=== PATIENT | male | born 1970 | race Caucasian/White ===

== ENCOUNTER 2024-08-13 17:24 | Emergency (ER) | payer OTHER, SELFPAY ==
[2024-08-13 17:33] VITALS: BP 183/119
[2024-08-13 18:23] VITALS: BP 182/118; BMI 29.9
[2024-08-13 18:53] LABS: % Basophils 0.6 % (0-2); % Eosinophils 2.9 % (0-6); % Immature Granulocytes 0.3 % (0-0.5); % Lymphocytes 23.9 % (20.5-51.1); % Monocytes 8.8 % (1.7-9.3); % Neutrophils 63.5 % (42.2-75.2); Absolute Eosinophils 0.2 10^3/uL (0-0.7); Absolute Lymphocytes 1.7 10^3/uL (1.2-3.4); Absolute Monocytes 0.6 10^3/uL (0.1-0.6); Absolute Neutrophils 4.6 10^3/uL (1.4-6.5); Hematocrit 41.3 % (39.0-52.0); Hemoglobin 14.3 g/dL (13.0-18.0); Mean Corp Hgb Conc. 34.6 g/dL (33.0-37.0); Mean Corpuscular Hgb 31.6 pg (27.0-31.0); Mean Corpuscular Volume 91.2 fL (80.0-94.0); Mean Platelet Volume 10.1 fL (7.4-10.4); Nucleated Red Blood Cells % 0 % (-); Platelet Count 225 10^3/uL (130-400); Red Blood Cell Count 4.53 10^6/uL (4.70-6.10); Red Cell Dist. Width 13.1 % (11.5-14.5); White Blood Cell Count 7.2 10^3/uL (4.8-10.8)
--- NOTE | 2024-08-13 18:55 | ED.GENMED ---
History of Present Illness
General
Chief Complaint: Blood Pressure Problem
Source: patient
Exam Limitations: none
Time Seen by Provider: 08/13/24 18:34
Nursing documentation reviewed up to this point in time: agreed with
History of Present Illness
History of Present Illness:
54-year-old male history of hypertension previously on meds now on diet lifestyle changes presents for evaluation of elevated blood pressure for a few days he felt a bit off mild headache pressures years, blood pressure taken yesterday when he is at
the hospital with his mother was elevated 180/118, today it was elevated again states he had some mild pain in his left chest earlier today into his arm no nausea no vomiting, states he was on the medication previously that made him cough a lot he
thinks it was lisinopril, he does drink alcohol socially, does admit to some stress in his life related to an ex-, he is employed, he has a PCP Kenny Levy, he did start a supplement [id number] few weeks ago which she thinks corresponds
with elevated blood pressures
Past History
Past History
ED Past Medical History: HTN
ED Past Surgical History: None
Social History
Tobacco: Former smoker
Alcohol: Daily ( Beer 2-6)
Drug: None
Personal:
Living: alone
Employment: Employed
Family History
Family History: Negative Hypertension, Early CAD, CAD or Sudden
Phy Exam
Physical Exam
Physical Exam:
Physical Exam
General: no apparent distress, not acutely ill
Neck: supple.
Heart: s1/s2 regular rate and rhythm, no murmur. equal radial pulses.
Lungs: no acute respiratory distress. clear bilaterally
Abdomen: not tender.
Neuro: alert and oriented. no focal neurological deficits
Skin: no rash
Psychiatric: well kept. interactive and cooperative
Extremities: no edema.
Course
Orders/Labs/Results
Orders:
Orders
08/13/24 17:39
EKG [Electrocardiogram (*1)] Urgent
Reason for Study: Hypertension, Benign
EKG- Treatment ONCE
08/13/24 18:35
Electrocardiogram (*1) Stat
Reason for Study: Other
Other Reason for Exam: chest pain
EKG- Treatment ONCE
08/13/24 18:45
Complete Blood Count/With Diff Urgent
Comprehensive Metabolic Panel Urgent
Magnesium Urgent
08/13/24 18:50
HydrALAZINE [Apresoline] 10 mg IV NOW STA
08/13/24 19:37
Troponin I Urgent
08/13/24 20:46
Acetaminophen [Tylenol] 1,000 mg PO NOW STA
Amlodipine [Norvasc] 10 mg PO NOW STA
Abnormal Lab Results
08/13/24
18:45
RBC 4.53 L 10^6/uL
(4.70-6.10)
MCH 31.6 H pg
(27.0-31.0)
08/13/24 18:45
08/13/24 18:45
Vital Signs
Initial and Last Documented VS:
Initial Vital Signs
Temp Pulse Resp BP Pulse Ox
98.3 F 77 18 183/119 97
08/13/24 17:33 08/13/24 17:33 08/13/24 17:33 08/13/24 17:33 08/13/24 17:33
Last Documented Vital Signs
Temp Pulse Resp BP Pulse Ox
98.3 F 73 18 170/96 98
08/13/24 17:33 08/13/24 20:58 08/13/24 20:45 08/13/24 20:58 08/13/24 19:45
MDM/Problems Addressed
Differential Diagnosis Includes:
Accelerated hypertension hypertension hypertensive urgency hypertensive emergency, question side effect of supplement
MDM/Problems Addressed:
High blood pressure
Chronic conditions affecting care: HTN
Acute Exacerbation and/or Progression of Chronic Illness: HTN
*Pulse Oximetry
Patient hypoxic: no
*EKG
Interpreted by ED Provider?: Yes
Interpretation: normal
Comparison EKG: no comparison EKG present
Heart Rate: 70
Rate: normal
Rhythm: sinus
Ischemia: no ischemia
*Vp Strategic Planning Interpretation
Rate: normal
Interpretation: normal
Heart Rate: 70
Rhythm: sinus
*Critical Care Note
Total Time (30-74mins, 75-104mins- exclusive of procedures): Not Applicable
Update Note
Update Note:
8:25 PM blood pressure improved labs are noted troponin noted EKG noted
Patient eating feeling better still some mild headache, clear speech, moving all extremities try some Tylenol, started on p.o. amlodipine
ED Attending Note
-
Portions of this chart may have been created with voice recognition software.� Occasional wrong word or��sound alike� substitutions may have occurred due to the inherent limitations of voice recognition software.
Discharge Plan
Departure
Patient Disposition: Home (Routine Discharge)
Date of Disposition: 08/13/24
Time of Disposition: 20:48
Patient with high blood pressure during this ER visit?: Yes
Condition: Good
Covid-19: Not Applicable
Discharge Problem:
High blood pressure
Instructions: High Blood Pressure (DC), BLOOD PRESSURE
Prescriptions:
New
amlodipine [Norvasc] 5 mg tablet
5 mg PO DAILY Qty: 60 3RF
No Action
hydrocodone-acetaminophen [Vicodin] 1 EACH tablet
1 ea PO .Q4-6HPRN Qty: 12 0RF
ibuprofen 600 MG tablet
600 mg PO Q6H Qty: 30 0RF
ciprofloxacin-hydrocortisone [Cipro HC] 0.2 %/1 % drops,suspension
2 drp RIGHT EAR TID Qty: 1 0RF
amoxicillin-pot clavulanate 1 TABLET tablet
1 tab PO Q12 Qty: 20 0RF
triamcinolone acetonide [Nasacort] 10.8 ML aerosol,spray
16.9 ml NS DAILY Qty: 1 0RF
hydrocodone-acetaminophen 1 TABLET tablet
1 - 2 tab PO Q4HPRN PRN (Reason: Mod-severe pain) 7 Days Qty: 30 0RF
amlodipine 5 MG tablet
5 mg PO DAILY Qty: 15 0RF
amlodipine 5 MG tablet
5 mg PO DAILY Qty: 30 0RF
cephalexin 500 mg tablet
500 mg PO QID 7 Days Qty: 28 0RF
Referrals:
Lila Alvarado DO [Family Provider] - Next open appointment
Activity Restrictions/Additional Instructions:
Take your blood pressure once in the morning once in the evening keep a log to discuss with your primary care provider
Call your primary care tomorrow to arrange follow-up visit
Start amlodipine 5 mg a day
Return to the ER if worsening symptoms
Interventions
Interventions:
*Risk Screen - Suicide Last Done: 08/13/24 17:33
*General Assessment Last Done: 08/13/24 17:33
*Neglect/Abuse Screening Last Done: 08/13/24 17:33
ED- Fall Risk Assessment Last Done: 08/13/24 18:23
*ED COVID-19 Vaccine History Last Done: 08/13/24 17:33
*Nursing Disposition Last Done: 08/13/24 21:12
ED- Cardiac Assessment Last Done: 08/13/24 18:23
ED- Neurological Assessment Last Done: 08/13/24 18:23
ED- Pulmonary Assessment Last Done: 08/13/24 18:23
Discharge Date and Time
Discharge Date/Time: 08/13/24 21:15
Print Language: [id number]
[2024-08-13 19:00] VITALS: BP 170/113
[2024-08-13] MEDS: APRESOLINE 10 MG IV (19:15)
[2024-08-13 19:16] LABS: ALT (SGPT) 29 U/L (0-50); AST (SGOT) 33 U/L (17-59); Albumin 4.5 g/dl (3.5-5.0); Alkaline Phosphatase 47 U/L (38-126); Blood Urea Nitrogen 19 mg/dl (9-20); Calcium 9.7 mg/dl (8.4-10.2); Carbon Dioxide 27 mmol/L (22-30); Chloride 103 mmol/L (98-107); Estimated Creatinine Clearance 95 ml/min; Glucose 84 mg/dl (70-99); Magnesium 2.1 mg/dl (1.6-2.3); Potassium 3.9 mmol/L (3.5-5.1); Sodium 137 mmol/L (135-145); Total Bilirubin 0.7 mg/dl (0.2-1.3); Total Protein 7.6 g/dl (6.3-8.2); eGFR > 60.00
[2024-08-13 19:30] VITALS: BP 164/112
[2024-08-13 20:00] VITALS: BP 134/73
[2024-08-13 20:18] LABS: Troponin I < 0.012 ng/ml
[2024-08-13 20:30] VITALS: BP 159/108
--- NOTE | 2024-08-13 20:36 | EDRN ---
Updated patient on labs, resting comfortably eating, ambulated to the restroom and back in bed resting comfortably
[2024-08-13] MEDS: NORVASC 10 MG PO (20:58)
[2024-08-13] MEDS: TYLENOL 1000 MG PO (21:04)
== END 2024-08-13 21:15 | disposition home or self-care (01) ==
LOC: EMR 17:24
PROVIDERS: EMERGENCY PHYSICIAN Emergency Medicine; FAMILY PHYSICIAN Family Medicine
DX: I10 Essential (primary) hypertension (principal); R51.9 Headache, unspecified; Z87.891 Personal history of nicotine dependence
CPT/HCPCS: 96374; 99284; 80053; 83735; 84484; 85025; 93005